=== PATIENT | male | born 1960 | race Caucasian/White ===

== ENCOUNTER 2017-09-22 20:21 | Inpatient (IN) | payer BC ==
[~2017-09-22] VITALS: Ht 180.3 cm; Wt 82.0 kg
[2017-09-22 20:58] LABS: BASOPHILS % (AUTO) 0.1 % (0-1); EOSINOPHILS % (AUTO) 0 % (0-6); HEMATOCRIT 41.1 % (42.0-52.0); HEMOGLOBIN 13.6 g/dl (14.0-17.9); LYMPHOCYTES # (AUTO) 1.5 X10'3 (1.1-4.8); LYMPHOCYTES % (AUTO) 6.7 % (21-51); MEAN CORPUSCULAR HEMOGLOBIN 29.6 PG (27.0-31.0); MEAN CORPUSCULAR VOLUME 89.6 FL (78-98); MEAN PLATELET VOLUME 8.3 FL (7.4-10.4); MONOCYTES # (AUTO) 1.2 X10'3 (0-0.9); MONOCYTES % (AUTO) 5.2 % (2-12); NEUTROPHILS # (AUTO) 20.2 X10'3 (1.8-7.7); PLATELET COUNT 218 X10'3 (140-440); RED BLOOD COUNT 4.59 X10'6 (4.70-6.10); RED CELL DISTRIBUTION WIDTH 15.3 % (11.5-14.5)
[2017-09-22 21:10] LABS: INR 1.1 INR; PARTIAL THROMBOPLASTIN TIME 41 SECONDS (22-32); PROTHROMBIN TIME 11.6 SECONDS (9.0-12.0)
[2017-09-22 21:24] LABS: ALANINE AMINOTRANSFERASE 130 U/L (12-78); ALBUMIN 3.3 G/DL (3.4-5.0); ALBUMIN/GLOBULIN RATIO 0.7 (1.1-1.5); ALKALINE PHOSPHATASE 68 IU/L (46-116); ANION GAP 11 (8-16); ASPARTATE AMINO TRANSFERASE 197 U/L (10-37); BILIRUBIN,TOTAL 0.7 MG/DL (0.1-1.0); BLOOD UREA NITROGEN 34 MG/DL (7-18); BUN/CREATININE RATIO 22.8 (5.4-32.0); CALCIUM 8.8 MG/DL (8.5-10.1); CHLORIDE 95 MMOL/L (99-107); CREATININE 1.49 MG/DL (0.60-1.10); GLUCOSE 83 MG/DL (70-104); POTASSIUM 4.3 MMOL/L (3.5-5.1); SODIUM 132 MMOL/L (135-145); TOTAL CARBON DIOXIDE 25.6 MMOL/L (24-32); TOTAL PROTEIN 7.9 G/DL (6.4-8.2); eGFR 48 ML/MIN
[2017-09-22 21:40] LABS: TOTAL CELLS COUNTED 100
[2017-09-22 21:41] LABS: PLATELET ESTIMATE NORMAL
[2017-09-22] MEDS ORDERED: normal saline 1000ML IV soln IVB ONE (22:20)
[2017-09-22 22:25] LABS: CLARITY,URINE Clear (Clear); COLOR,URINE Yellow (Yellow); GLUCOSE, URINE Negative (Neg); KETONES,URINE Trace mg/dl (Neg); LEUKOCYTE ESTERASE ,URINE Negative (Neg); NITRITES, URINE Negative (Neg); OCCULT BLOOD,URINE Moderate (Neg); PH,URINE 6.5 (4.8-8.0); PROTEIN,URINE 30 mg/dl (Neg); UROBILINOGEN,URINE 0.2 E.U/dL (0.2-1.0)
[2017-09-22] MEDS ORDERED: vancomycin/NS 1 GM ADD-VANTAGE 250 ML IV ONE (22:30)
[2017-09-22] MEDS ORDERED: CefTRIAXone 1 gm/50ml D5W ADV 50 ML IV ONE (22:30)
[2017-09-22] MEDS ORDERED: LIDOcaine 1.5% w/epinephrine 1:200,000 5ml ampul IJ ONE (22:35)
[2017-09-22 22:40] LABS: UA COLLECTION TYPE CLN CATCH MIDSTREAM
[2017-09-22] MEDS ORDERED: cefazolin 1gm/NS 100mL 100 ML IV ONE (22:40)
[2017-09-22 22:42] LABS: BACTERIA,URINE FEW /HPF (Neg); RBC,URINE 0-2 /HPF (0-2); SQUAMOUS EPITHELIAL CELL,UR FEW /LPF (FEW); WBC,URINE 0-4 /HPF (0-4)
[2017-09-22] MEDS ORDERED: lidocaine 1.5% w/epinephrine 1:200,000 10ml vial MPF IJ ONE (22:45)
[2017-09-22] MEDS ORDERED: HYDROcodone/acetaminophen 10/325mg tab PO PRN (23:00)
[2017-09-22] MEDS ORDERED: ondansetron/PF 4mg/2ml inj IV PRN (23:00)
[2017-09-22] MEDS ORDERED: mag hydrox/Alum hydrox/simeth 30ml oral suspension PO PRN (23:00)
[2017-09-22] MEDS ORDERED: magnesium hydroxide 30ml (MOM) UD suspension PO PRN (23:00)
[2017-09-22] MEDS ORDERED: acetaminophen 325mg tablet PO PRN ×2 (23:00)
[2017-09-22] MEDS: normal saline 1000ml 1,000 ML IV SCH (23:40)
[2017-09-22] MEDS ORDERED: CADD PCA waste documentation MC PRN (23:50)
[2017-09-22] MEDS ORDERED: naloxone 0.4 mg/ml inj IV PRN (23:50)
[2017-09-23] VITALS (19 sets, daily range): BP systolic 88–124; BP diastolic 51–76
[2017-09-23] MEDS: HYDROmorphone/NS 1 mg/ml CADD 50 ML IV SCH ×13 (00:23→23:00)
[2017-09-23] MEDS ORDERED: HYDR-565 PO (00:26)
[2017-09-23 00:58] LABS: APPEARANCE,SYNOVIAL FLUID CLOUDY; COLOR,SYNOVIAL FLUID YELLOW
[2017-09-23 00:59] LABS: LYMPHOCYTES,SYNOVIAL FLUID 12 % (0-75); MONOCYTES,SYNOVIAL FLUID 6 % (0-0); NEUTROPHILS,SYNOVIAL FLUID 82 % (0-25); SYN RBC 1800 /CU MM (0); SYN WBC 69000 /CU MM (0-200)
[2017-09-23 06:09] LABS: BASOPHILS % (AUTO) 0 % (0-1); EOSINOPHILS % (AUTO) 0 % (0-6); HEMATOCRIT 36.9 % (42.0-52.0); HEMOGLOBIN 12.1 g/dl (14.0-17.9); LYMPHOCYTES # (AUTO) 1.5 X10'3 (1.1-4.8); MEAN CORPUSCULAR HEMOGLOBIN 29.6 PG (27.0-31.0); MEAN CORPUSCULAR HGB CONC 32.9 % (33.0-36.5); MEAN CORPUSCULAR VOLUME 90.1 FL (78-98); MEAN PLATELET VOLUME 8.4 FL (7.4-10.4); MONOCYTES # (AUTO) 1.1 X10'3 (0-0.9); MONOCYTES % (AUTO) 5.7 % (2-12); NEUTROPHILS # (AUTO) 15.9 X10'3 (1.8-7.7); NEUTROPHILS % (AUTO) 86.3 % (42-75); PLATELET COUNT 201 X10'3 (140-440); RED BLOOD COUNT 4.09 X10'6 (4.70-6.10); WHITE BLOOD COUNT 18.5 X10'3 (4.5-11.0)
[2017-09-23 06:16] LABS: PARTIAL THROMBOPLASTIN TIME 37 SECONDS (22-32); PROTHROMBIN TIME 10.6 SECONDS (9.0-12.0)
[2017-09-23 06:28] LABS: ALANINE AMINOTRANSFERASE 95 U/L (12-78); ALBUMIN 2.6 G/DL (3.4-5.0); ALBUMIN/GLOBULIN RATIO 0.6 (1.1-1.5); ALKALINE PHOSPHATASE 61 IU/L (46-116); ANION GAP 8 (8-16); ASPARTATE AMINO TRANSFERASE 124 U/L (10-37); BILIRUBIN,TOTAL 0.3 MG/DL (0.1-1.0); BLOOD UREA NITROGEN 24 MG/DL (7-18); BUN/CREATININE RATIO 18.9 (5.4-32.0); CALCIUM 8.4 MG/DL (8.5-10.1); CHLORIDE 105 MMOL/L (99-107); CREATININE 1.27 MG/DL (0.60-1.10); GLUCOSE 111 MG/DL (70-104); POTASSIUM 3.9 MMOL/L (3.5-5.1); SODIUM 140 MMOL/L (135-145); TOTAL PROTEIN 6.7 G/DL (6.4-8.2); eGFR 58 ML/MIN
[2017-09-23] MEDS: normal saline 1000ml 1,000 ML IV SCH ×2 (09:00→21:46)
[2017-09-23] MEDS ORDERED: ROPIVAcaine 0.5% (5mg/ml) 30ml vial ONE ×2 (10:10→11:38)
[2017-09-23] MEDS ORDERED: povidone-iodine 10% topical ointment 28.4gm TP ONE (10:10)
[2017-09-23] MEDS ORDERED: ketorolac trometh. 30mg/ml inj. ONE ×2 (10:10→14:08)
[2017-09-23] MEDS ORDERED: vancomycin 1,000mg inj ONE (10:57)
[2017-09-23] MEDS ORDERED: tobramycin sulfate 1.2gm vial IR ONE (11:00)
[2017-09-23] MEDS ORDERED: ringers solution, lacted 1,000 ML IV SCH (11:26)
[2017-09-23] MEDS ORDERED: meperidine/PF 25mg/ml syringe IV PRN ×3 (11:30)
[2017-09-23] MEDS ORDERED: proCHLORperazine 10 MG/2 ml inj IV PRN (11:30)
[2017-09-23] MEDS ORDERED: ondansetron/PF 4mg/2ml inj IV PRN ×2 (11:30→14:10)
[2017-09-23] MEDS ORDERED: midazolam 2 mg/2 ml injection ONE (11:36)
[2017-09-23] MEDS ORDERED: fentaNYL /PF 50mcg/ml 5ml ampule ONE (11:37)
[2017-09-23] MEDS ORDERED: propofol inj 20 ML IV ONE (11:39)
[2017-09-23] MEDS ORDERED: sevoflurane 250ml liquid IH ONE (11:45)
[2017-09-23] MEDS: ceFAZolin 1000mg inj ONE ×2 (12:45→12:46)
[2017-09-23] MEDS ORDERED: ceFAZolin 1000mg inj ONE ×2 (13:29)
[2017-09-23] MEDS ORDERED: bisacodyl 10mg suppository rectal RC PRN (14:10)
[2017-09-23] MEDS ORDERED: diphenhydrAMINE 25mg capsule PO PRN ×2 (14:10)
[2017-09-23] MEDS ORDERED: CADD PCA waste documentation MC PRN (14:10)
[2017-09-23] MEDS ORDERED: acetaminophen 325mg tablet PO PRN (14:10)
[2017-09-23] MEDS ORDERED: magnesium hydroxide 30ml (MOM) UD suspension PO PRN (14:10)
[2017-09-23] MEDS ORDERED: HYDROcodone/acetaminophen 10/325mg tab PO PRN ×2 (14:10)
[2017-09-23] MEDS ORDERED: naloxone 0.4 mg/ml inj IV PRN (14:10)
[2017-09-23] MEDS: cefazolin 1gm/NS 100mL 100 ML IV SCH (16:35)
[2017-09-23] MEDS ORDERED: vancomycin/NS 1 GM ADD-VANTAGE 250 ML IV SCH (20:00)
[2017-09-23] MEDS: sennosides 8.6mg tablet PO SCH (21:45)
[2017-09-24] MEDS: cefazolin 1gm/NS 100mL 100 ML IV SCH (00:38)
[2017-09-24] MEDS: HYDROmorphone/NS 1 mg/ml CADD 50 ML IV SCH ×9 (00:39→17:00)
[2017-09-24 02:00] VITALS: BP_SYST 117; BP_SYST 98; BP_DIAS 58; BP_DIAS 66
[2017-09-24] MEDS: normal saline 1000ml 1,000 ML IV SCH ×2 (05:00→15:00)
[2017-09-24 05:23] LABS: BASOPHILS % (AUTO) 0 % (0-1); EOSINOPHILS # (AUTO) 0.3 X10'3 (0-0.9); EOSINOPHILS % (AUTO) 1.7 % (0-6); HEMATOCRIT 32.3 % (42.0-52.0); HEMOGLOBIN 10.7 g/dl (14.0-17.9); LYMPHOCYTES # (AUTO) 1.2 X10'3 (1.1-4.8); LYMPHOCYTES % (AUTO) 7.4 % (21-51); MEAN CORPUSCULAR HEMOGLOBIN 29.7 PG (27.0-31.0); MEAN CORPUSCULAR VOLUME 90.2 FL (78-98); MEAN PLATELET VOLUME 8.7 FL (7.4-10.4); MONOCYTES % (AUTO) 6.3 % (2-12); NEUTROPHILS # (AUTO) 13.9 X10'3 (1.8-7.7); NEUTROPHILS % (AUTO) 84.6 % (42-75); PLATELET COUNT 190 X10'3 (140-440); RED BLOOD COUNT 3.58 X10'6 (4.70-6.10); RED CELL DISTRIBUTION WIDTH 15.1 % (11.5-14.5); WHITE BLOOD COUNT 16.4 X10'3 (4.5-11.0)
[2017-09-24 05:35] LABS: INR 0.9 INR; PARTIAL THROMBOPLASTIN TIME 33 SECONDS (22-32); PROTHROMBIN TIME 9.3 SECONDS (9.0-12.0)
[2017-09-24 05:56] LABS: ALANINE AMINOTRANSFERASE 94 U/L (12-78); ALBUMIN 2.2 G/DL (3.4-5.0); ALBUMIN/GLOBULIN RATIO 0.5 (1.1-1.5); ALKALINE PHOSPHATASE 86 IU/L (46-116); ANION GAP 6 (8-16); ASPARTATE AMINO TRANSFERASE 96 U/L (10-37); BILIRUBIN,TOTAL 0.3 MG/DL (0.1-1.0); BLOOD UREA NITROGEN 17 MG/DL (7-18); BUN/CREATININE RATIO 17.9 (5.4-32.0); CALCIUM 8.8 MG/DL (8.5-10.1); CHLORIDE 107 MMOL/L (99-107); CREATININE 0.95 MG/DL (0.60-1.10); GLUCOSE 138 MG/DL (70-104); POTASSIUM 4.3 MMOL/L (3.5-5.1); SODIUM 141 MMOL/L (135-145); TOTAL CARBON DIOXIDE 27.9 MMOL/L (24-32); TOTAL PROTEIN 6.5 G/DL (6.4-8.2); eGFR 81 ML/MIN
[2017-09-24 06:00] VITALS: BP 107/68
[2017-09-24] MEDS ORDERED: vancomycin/NS 1 GM ADD-VANTAGE 250 ML IV SCH (08:00)
[2017-09-24] MEDS: vancomycin inj 1,250 MG in normal saline 250ml IV soln 250 ML IV SCH ×2 (08:23→19:59)
[2017-09-24] MEDS: enoxaparin 40mg/0.4ml syringe SQ SCH (08:23)
[2017-09-24 11:00] VITALS: BP 110/75
[2017-09-24 18:00] VITALS: BP 117/56
[2017-09-24] MEDS ORDERED: oxyCODONE IR 5mg (immed. release) tablet PO PRN (18:45)
[2017-09-24] MEDS ORDERED: HYDROmorphone 1 mg/ml syringe IV PRN (18:45)
[2017-09-24] MEDS: acetaminophen 325mg tablet PO SCH (19:59)
[2017-09-24] MEDS: sennosides 8.6mg tablet PO SCH (19:59)
[2017-09-24] MEDS: oxyCODONE IR 5mg (immed. release) tablet PO PRN (20:00)
[2017-09-24 22:00] VITALS: BP 120/68
[2017-09-25] MEDS: oxyCODONE IR 5mg (immed. release) tablet PO PRN ×6 (00:35→21:54)
[2017-09-25] MEDS: acetaminophen 325mg tablet PO SCH ×4 (00:36→19:49)
[2017-09-25] MEDS: normal saline 1000ml 1,000 ML IV SCH ×2 (01:00→07:58)
[2017-09-25 06:00] VITALS: BP 109/72
[2017-09-25 06:46] LABS: BASOPHILS # (AUTO) 0.1 X10'3 (0-0.2); BASOPHILS % (AUTO) 0.8 % (0-1); EOSINOPHILS # (AUTO) 0.1 X10'3 (0-0.9); EOSINOPHILS % (AUTO) 1.3 % (0-6); HEMOGLOBIN 11.4 g/dl (14.0-17.9); LYMPHOCYTES # (AUTO) 2.2 X10'3 (1.1-4.8); LYMPHOCYTES % (AUTO) 21.9 % (21-51); MEAN CORPUSCULAR HGB CONC 33.4 % (33.0-36.5); MEAN CORPUSCULAR VOLUME 89.8 FL (78-98); MEAN PLATELET VOLUME 8.8 FL (7.4-10.4); MONOCYTES % (AUTO) 9.9 % (2-12); NEUTROPHILS # (AUTO) 6.8 X10'3 (1.8-7.7); NEUTROPHILS % (AUTO) 66.1 % (42-75); PLATELET COUNT 220 X10'3 (140-440); RED BLOOD COUNT 3.79 X10'6 (4.70-6.10); RED CELL DISTRIBUTION WIDTH 14.7 % (11.5-14.5); WHITE BLOOD COUNT 10.3 X10'3 (4.5-11.0)
[2017-09-25 07:01] LABS: INR 0.9 INR; PARTIAL THROMBOPLASTIN TIME 32 SECONDS (22-32); PROTHROMBIN TIME 9.1 SECONDS (9.0-12.0)
[2017-09-25 07:18] LABS: ALANINE AMINOTRANSFERASE 159 U/L (12-78); ALBUMIN 2.4 G/DL (3.4-5.0); ALBUMIN/GLOBULIN RATIO 0.5 (1.1-1.5); ALKALINE PHOSPHATASE 120 IU/L (46-116); ANION GAP 6 (8-16); ASPARTATE AMINO TRANSFERASE 110 U/L (10-37); BILIRUBIN,TOTAL 0.5 MG/DL (0.1-1.0); BLOOD UREA NITROGEN 14 MG/DL (7-18); BUN/CREATININE RATIO 16.3 (5.4-32.0); CALCIUM 9.6 MG/DL (8.5-10.1); CHLORIDE 103 MMOL/L (99-107); CREATININE 0.86 MG/DL (0.60-1.10); GLUCOSE 91 MG/DL (70-104); POTASSIUM 3.9 MMOL/L (3.5-5.1); SODIUM 139 MMOL/L (135-145); TOTAL CARBON DIOXIDE 30.2 MMOL/L (24-32); TOTAL PROTEIN 6.9 G/DL (6.4-8.2); eGFR > 90 ML/MIN
[2017-09-25] MEDS: vancomycin inj 1,250 MG in normal saline 250ml IV soln 250 ML IV SCH (07:58)
[2017-09-25] MEDS: enoxaparin 40mg/0.4ml syringe SQ SCH (07:58)
[2017-09-25 10:00] VITALS: BP 128/45
[2017-09-25] MEDS: penicillin G potassium inj 3,000,000 UNIT in normal saline 100ml IV soln 100 ML IV SCH ×4 (14:06→23:50)
[2017-09-25 18:00] VITALS: BP 124/69
[2017-09-25] MEDS ORDERED: VANCOMYCIN LEVEL IV ONE (19:30)
[2017-09-25] MEDS: sennosides 8.6mg tablet PO SCH (19:49)
[2017-09-25 22:00] VITALS: BP 123/71
[2017-09-26] MEDS: acetaminophen 325mg tablet PO SCH ×3 (02:00→13:54)
[2017-09-26] MEDS: penicillin G potassium inj 3,000,000 UNIT in normal saline 100ml IV soln 100 ML IV SCH ×3 (03:43→12:33)
[2017-09-26 04:26] LABS: BASOPHILS # (AUTO) 0.1 X10'3 (0-0.2); BASOPHILS % (AUTO) 0.5 % (0-1); EOSINOPHILS # (AUTO) 0.1 X10'3 (0-0.9); EOSINOPHILS % (AUTO) 1.3 % (0-6); HEMATOCRIT 37.1 % (42.0-52.0); HEMOGLOBIN 12.2 g/dl (14.0-17.9); LYMPHOCYTES # (AUTO) 2.4 X10'3 (1.1-4.8); LYMPHOCYTES % (AUTO) 21.7 % (21-51); MEAN CORPUSCULAR HEMOGLOBIN 29.4 PG (27.0-31.0); MEAN CORPUSCULAR HGB CONC 32.9 % (33.0-36.5); MEAN CORPUSCULAR VOLUME 89.2 FL (78-98); MONOCYTES # (AUTO) 1.3 X10'3 (0-0.9); MONOCYTES % (AUTO) 12.2 % (2-12); NEUTROPHILS % (AUTO) 64.3 % (42-75); PLATELET COUNT 275 X10'3 (140-440); RED BLOOD COUNT 4.15 X10'6 (4.70-6.10); RED CELL DISTRIBUTION WIDTH 14.4 % (11.5-14.5); WHITE BLOOD COUNT 10.9 X10'3 (4.5-11.0)
[2017-09-26 04:35] LABS: INR 0.9 INR; PROTHROMBIN TIME 9.5 SECONDS (9.0-12.0)
[2017-09-26 04:43] LABS: ALANINE AMINOTRANSFERASE 143 U/L (12-78); ALBUMIN 2.5 G/DL (3.4-5.0); ALBUMIN/GLOBULIN RATIO 0.5 (1.1-1.5); ALKALINE PHOSPHATASE 136 IU/L (46-116); ANION GAP 6 (8-16); ASPARTATE AMINO TRANSFERASE 60 U/L (10-37); BILIRUBIN,TOTAL 0.5 MG/DL (0.1-1.0); BLOOD UREA NITROGEN 12 MG/DL (7-18); BUN/CREATININE RATIO 14.5 (5.4-32.0); CALCIUM 9.6 MG/DL (8.5-10.1); CHLORIDE 98 MMOL/L (99-107); CREATININE 0.83 MG/DL (0.60-1.10); GLUCOSE 104 MG/DL (70-104); SODIUM 136 MMOL/L (135-145); TOTAL CARBON DIOXIDE 31.6 MMOL/L (24-32); TOTAL PROTEIN 7.4 G/DL (6.4-8.2); eGFR > 90 ML/MIN
[2017-09-26] MEDS: oxyCODONE IR 5mg (immed. release) tablet PO PRN ×3 (04:52→14:28)
[2017-09-26 05:00] VITALS: BP 122/66
[2017-09-26] MEDS: enoxaparin 40mg/0.4ml syringe SQ SCH (07:18)
[2017-09-26 10:00] VITALS: BP 120/63
[2017-09-26] MEDS ORDERED: ENOX40DI11 SQ (10:02)
[2017-09-27] MEDS ORDERED: LACTOBACILLUS RHAMNOSUS GG 15 billion unit sprinkle caps PO SCH (07:30)
== END 2017-09-26 14:30 | disposition home health service (06) | DRG 464 ==
LOC: ER 20:23 → ED HOLD 23:00 → ORTHO 4S 09-23 05:28
PROC: 0S9C3ZX Drainage of Right Knee Joint, Percutaneous Approach, Diagnostic (ICD-10-PCS; principal; 2017-09-22)
PROC: 0SPV0JZ Removal of Synthetic Substitute from Right Knee Joint, Tibial Surface, Open Approach (ICD-10-PCS; 2017-09-23)
PROC: 0SBC0ZZ Excision of Right Knee Joint, Open Approach (ICD-10-PCS; 2017-09-23)
PROC: 3E0T3BZ Introduction of Anesthetic Agent into Peripheral Nerves and Plexi, Percutaneous Approach (ICD-10-PCS; 2017-09-23)
PROC: 3E0U029 Introduction of Other Anti-infective into Joints, Open Approach (ICD-10-PCS; 2017-09-23)
PROC: 02HV33Z Insertion of Infusion Device into Superior Vena Cava, Percutaneous Approach (ICD-10-PCS; 2017-09-25)
PROC: B548ZZA Ultrasonography of Superior Vena Cava, Guidance (ICD-10-PCS; 2017-09-25)
DX: T84.53XA Infection and inflammatory reaction due to internal right knee prosthesis, initial encounter (principal); M00.261 Other streptococcal arthritis, right knee; D62 Acute posthemorrhagic anemia; R74.8 Abnormal levels of other serum enzymes; Y83.1 Surgical operation with implant of artificial internal device as the cause of abnormal reaction of the patient, or of later complication, without mention of misadventure at the time of the procedure; B95.4 Other streptococcus as the cause of diseases classified elsewhere; Z88.6 Allergy status to analgesic agent; Z79.899 Other long term (current) drug therapy; Z87.891 Personal history of nicotine dependence; Y92.89 Other specified places as the place of occurrence of the external cause
CPT/HCPCS: 20610; 36569; 99285; Z7506; 36415; 73560; 76937; 80053; 81001; 83605; 84145; 85025; 85610; 85651; 85730; 86140; 86885; 86900; 86901; 87040; 87070; 87075; 87077; 87186; 89051; 93005; 97110; 97116; 97162; 97530; A6255; A6449; A7000; C1713; C1776; J0690; J0696; J1170; J1650; J1885; J2250; J2540; J2704; J2795; J3010; J3260; J3370; J3490; J7030; J7120; Q0163

== ENCOUNTER 2019-01-05 17:24 | Inpatient (IN) | payer BC ==
[~2019-01-05] VITALS: Ht 180.3 cm; Wt 101.0 kg
[~2019-01-05 17:24] MED LIST: ENOX40DI11 SQ; HYDR-4353 PO
[2019-01-05 18:08] LABS: HEMATOCRIT 39.9 % (42.0-52.0); HEMOGLOBIN 13.3 g/dl (14.0-17.9); MEAN CORPUSCULAR HEMOGLOBIN 30.1 PG (27.0-31.0); MEAN CORPUSCULAR HGB CONC 33.3 g/dL (33.0-36.5); MEAN CORPUSCULAR VOLUME 90.3 FL (78-98); RED BLOOD COUNT 4.42 X10'6 (4.70-6.10); RED CELL DISTRIBUTION WIDTH 14.1 % (11.5-14.5); WHITE BLOOD COUNT 9.9 X10'3 (4.5-11.0)
[2019-01-05 18:09] LABS: BASOPHILS # (AUTO) 0.1 X10'3 (0-0.2); BASOPHILS % (AUTO) 0.7 % (0-1); EOSINOPHILS # (AUTO) 0.2 X10'3 (0-0.9); EOSINOPHILS % (AUTO) 1.7 % (0-6); LYMPHOCYTES # (AUTO) 2.4 X10'3 (1.1-4.8); LYMPHOCYTES % (AUTO) 24.2 % (21-51); MEAN PLATELET VOLUME 8.7 FL (7.4-10.4); MONOCYTES # (AUTO) 0.9 X10'3 (0-0.9); MONOCYTES % (AUTO) 9.3 % (2-12); NEUTROPHILS # (AUTO) 6.4 X10'3 (1.8-7.7); NEUTROPHILS % (AUTO) 64.1 % (42-75); PLATELET COUNT 294 X10'3 (140-440)
[2019-01-05 18:18] LABS: ALANINE AMINOTRANSFERASE 58 U/L (12-78); ALBUMIN 3.8 G/DL (3.4-5.0); ALKALINE PHOSPHATASE 65 IU/L (46-116); ANION GAP 5 (8-16); ASPARTATE AMINO TRANSFERASE 27 U/L (10-37); BILIRUBIN,TOTAL 0.2 MG/DL (0.1-1.0); BLOOD UREA NITROGEN 18 MG/DL (7-18); BUN/CREATININE RATIO 19.4 (5.4-32.0); CALCIUM 9.7 MG/DL (8.5-10.1); CHLORIDE 105 MMOL/L (99-107); CREATININE 0.93 MG/DL (0.60-1.10); GLUCOSE 135 MG/DL (70-104); LIPASE 127 U/L (73-393); SODIUM 140 MMOL/L (135-145); TOTAL CARBON DIOXIDE 30.2 MMOL/L (24-32); TOTAL PROTEIN 7.6 G/DL (6.4-8.2); eGFR 83 ML/MIN
--- NOTE | 2019-01-05 19:55 | NUR ---
ULTRASOUND AT BEDSIDE
[2019-01-05] MEDS ORDERED: ketorolac trometh. 30mg/ml inj. IV ONE (20:15)
[2019-01-05] MEDS ORDERED: ondansetron/PF 4mg/2ml inj IV PRN (21:45)
[2019-01-05] MEDS ORDERED: acetaminophen 325mg tablet PO PRN (21:45)
[2019-01-05] MEDS ORDERED: magnesium hydroxide 30ml (MOM) UD suspension PO PRN (21:45)
[2019-01-05] MEDS ORDERED: mag hydrox/Alum hydrox/simeth 30ml oral suspension PO PRN (21:45)
[2019-01-05] MEDS ORDERED: ZOLP10TA PO (22:10)
[2019-01-05] MEDS: normal saline 1000ml 1,000 ML IV SCH (22:13)
[2019-01-05 22:22] LABS: CLARITY,URINE SLIGHTLY CLOUDY (Clear); COLOR,URINE YELLOW (Yellow); GLUCOSE, URINE 100 mg/dl (Neg); KETONES,URINE NEGATIVE (Neg); LEUKOCYTE ESTERASE ,URINE NEGATIVE (Neg); NITRITES, URINE NEGATIVE (Neg); OCCULT BLOOD,URINE NEGATIVE (Neg); PROTEIN,URINE NEGATIVE (Neg); UROBILINOGEN,URINE 0.2 E.U/dL (0.2-1.0)
[2019-01-05 22:29] LABS: UA COLLECTION TYPE CLN CATCH MIDSTREAM
[2019-01-05 22:30] LABS: BACTERIA,URINE FEW /HPF (Neg); RBC,URINE 0-2 /HPF (0-2); SQUAMOUS EPITHELIAL CELL,UR FEW /LPF (FEW); WBC,URINE 0-4 /HPF (0-4)
[2019-01-05 23:20] VITALS: BP 155/92
[2019-01-06] VITALS (17 sets, daily range): BP systolic 109–155; BP diastolic 64–84
[2019-01-06] MEDS: morphine 2 MG/ML inj. syringe IV PRN ×3 (02:37→11:11)
[2019-01-06] MEDS ORDERED: ROSU10TA2 PO (05:43)
[2019-01-06 06:23] LABS: BASOPHILS # (AUTO) 0.1 X10'3 (0-0.2); BASOPHILS % (AUTO) 0.6 % (0-1); EOSINOPHILS # (AUTO) 0.1 X10'3 (0-0.9); EOSINOPHILS % (AUTO) 0.5 % (0-6); HEMATOCRIT 40.2 % (42.0-52.0); LYMPHOCYTES # (AUTO) 2.3 X10'3 (1.1-4.8); LYMPHOCYTES % (AUTO) 17.6 % (21-51); MEAN CORPUSCULAR HEMOGLOBIN 29.4 PG (27.0-31.0); MEAN CORPUSCULAR HGB CONC 32.4 g/dL (33.0-36.5); MEAN CORPUSCULAR VOLUME 90.8 FL (78-98); MEAN PLATELET VOLUME 8.9 FL (7.4-10.4); MONOCYTES % (AUTO) 7.6 % (2-12); NEUTROPHILS # (AUTO) 9.5 X10'3 (1.8-7.7); NEUTROPHILS % (AUTO) 73.7 % (42-75); PLATELET COUNT 266 X10'3 (140-440); RED BLOOD COUNT 4.43 X10'6 (4.70-6.10); RED CELL DISTRIBUTION WIDTH 14.2 % (11.5-14.5); WHITE BLOOD COUNT 12.9 X10'3 (4.5-11.0)
[2019-01-06 06:37] LABS: ALANINE AMINOTRANSFERASE 50 U/L (12-78); ALBUMIN 3.3 G/DL (3.4-5.0); ALBUMIN/GLOBULIN RATIO 0.9 (1.1-1.5); ALKALINE PHOSPHATASE 63 IU/L (46-116); ANION GAP 7 (8-16); ASPARTATE AMINO TRANSFERASE 22 U/L (10-37); BILIRUBIN,TOTAL 0.3 MG/DL (0.1-1.0); BLOOD UREA NITROGEN 14 MG/DL (7-18); BUN/CREATININE RATIO 17.7 (5.4-32.0); CALCIUM 9.1 MG/DL (8.5-10.1); CHLORIDE 106 MMOL/L (99-107); CREATININE 0.79 MG/DL (0.60-1.10); GLUCOSE 112 MG/DL (70-104); POTASSIUM 4.1 MMOL/L (3.5-5.1); SODIUM 140 MMOL/L (135-145); TOTAL CARBON DIOXIDE 27.5 MMOL/L (24-32); eGFR > 90 ML/MIN
[2019-01-06] MEDS: normal saline 1000ml 1,000 ML IV SCH ×2 (07:18→17:16)
[2019-01-06] MEDS ORDERED: ceFAZolin 1GM/D5W- ADD-VANTAGE 50 ML IV ONE (13:10)
[2019-01-06] MEDS ORDERED: ringers solution, lacted 1,000 ML IV SCH (15:28)
[2019-01-06] MEDS ORDERED: labetalol 20mg/4ml (5mg/ml) syringe IV PRN (15:30)
[2019-01-06] MEDS ORDERED: meperidine/PF 25mg/ml syringe IV PRN ×2 (15:30)
[2019-01-06] MEDS ORDERED: ondansetron/PF 4mg/2ml inj IV PRN (15:30)
[2019-01-06] MEDS ORDERED: morphine 4 MG/ML inj SYRINge IV PRN ×2 (15:30)
[2019-01-06] MEDS ORDERED: hydrALAZINE 20mg/ml inj. IV PRN (15:30)
[2019-01-06] MEDS ORDERED: BUPIVAcaine/PF 2.5mg/ml (0.25%) 10ml vial ONE ×2 (15:50→19:35)
[2019-01-06] MEDS ORDERED: ceFAZolin 1000mg inj ONE ×3 (15:50→18:01)
[2019-01-06] MEDS ORDERED: midazolam 2 mg/2 ml injection ONE (17:59)
[2019-01-06] MEDS ORDERED: fentaNYL/PF 50MCG/1 ML 2ML syringe ONE ×2 (17:59→18:53)
[2019-01-06] MEDS ORDERED: ondansetron/PF 4mg/2ml inj ONE (18:00)
[2019-01-06] MEDS ORDERED: dexamethasone sod phosphate 10mg/ml inj ONE (18:00)
[2019-01-06] MEDS ORDERED: neostigmine methylsulfate 1 MG/ML 10ml vial ONE (18:00)
[2019-01-06] MEDS ORDERED: sevoflurane 250ml liquid IH ONE (18:00)
[2019-01-06] MEDS ORDERED: rocuronium 10mg/ml inj IV ONE ×2 (18:00→18:06)
--- NOTE | 2019-01-06 18:00 | NUR ---
Patient in room [facility]TH[facility] 4015. I have received report from LIN Avila and had the opportunity to ask questions and assume patient care.
[2019-01-06] MEDS ORDERED: propofol inj 20 ML IV ONE (18:05)
[2019-01-06] MEDS ORDERED: LIDOcaine 2% (20mg/ml) 5ml vial ONE (18:05)
[2019-01-06] MEDS ORDERED: glycopyrrolate 0.2mg/ml inj ONE (18:08)
[2019-01-06] MEDS ORDERED: ePHEDrine 50MG/ML INJ. ONE (18:34)
[2019-01-06] MEDS ORDERED: BUPIVACAINE liposomal/PF 13.3 MG/ML vial IM ONE (19:36)
[2019-01-06] MEDS: potassium CL 20mEq in D5-1/2NS 1,000 ML IV SCH (19:51)
[2019-01-06] MEDS ORDERED: HYDROmorphone 1 mg/ml syringe IV PRN (19:55)
--- NOTE | 2019-01-06 20:00 | NUR ---
Received from OR via BED, accompanied by Anesthesiologist DR VILA and report given by Anesthesiologist. PT DROWSY, NO S/S OF DISTRESS/DISCOMFORT, VSS. MIDLINE INCISION W/ISLAND DRSG COVERING W/SCANT AMT OF S/S DRAINAGE, KLARISSA TO BULB SUCTION W/S/S DRAINAGE IN BULB. Addendum: 01/06/19 at 2033 by Corrine Sutton RN Amended: Links added.
--- NOTE | 2019-01-06 21:20 | NUR ---
Report called to receiving nurse. Transferred via BED, NO Belongings, RECEIVING RN AT BEDSIDE TO RECEIVE PT, BLL, CALL LIGHT GIVEN, SIDE RAILS UP X 2, PTS FAMILY PRESENT. PT COMFORTABLE. Special Issues communicated to receiving nurse. YES. Addendum: 01/06/19 at 2136 by Corrine Sutton RN Amended: Links added.
--- NOTE | 2019-01-06 21:25 | NUR ---
Patient arrived from recovery. Alert & oriented, drowsy, settled into his bed, call light given, and Post-op vs initiated. Patient denies having any pain at this time. Hypoactive BS, long vertical island with minimal drainage noted and dressing over KLARISSA site to the RUQ with around 10cc sanguineous drainage output noted.
--- NOTE | 2019-01-06 21:29 | NUR ---
Pt. went to surgical floor after his surgery.
[2019-01-07] VITALS (7 sets, daily range): BP systolic 116–145; BP diastolic 71–90
[2019-01-07] MEDS: cefotetan 1gm/50ml IVPB 50 ML IV SCH ×2 (00:30→07:54)
[2019-01-07] MEDS: potassium CL 20mEq in D5-1/2NS 1,000 ML IV SCH ×2 (01:22→11:31)
[2019-01-07] MEDS: morphine 2 MG/ML inj. syringe IV PRN ×2 (01:29→05:37)
[2019-01-07] MEDS: normal saline 1000ml 1,000 ML IV SCH ×3 (03:43→17:20)
[2019-01-07 05:20] LABS: BASOPHILS % (AUTO) 0.2 % (0-1); EOSINOPHILS % (AUTO) 0 % (0-6); HEMATOCRIT 40.1 % (42.0-52.0); HEMOGLOBIN 13.1 g/dl (14.0-17.9); LYMPHOCYTES # (AUTO) 0.9 X10'3 (1.1-4.8); LYMPHOCYTES % (AUTO) 8.3 % (21-51); MEAN CORPUSCULAR HEMOGLOBIN 29.9 PG (27.0-31.0); MEAN CORPUSCULAR HGB CONC 32.8 g/dL (33.0-36.5); MEAN CORPUSCULAR VOLUME 91.2 FL (78-98); MEAN PLATELET VOLUME 9.2 FL (7.4-10.4); MONOCYTES # (AUTO) 0.4 X10'3 (0-0.9); MONOCYTES % (AUTO) 3.3 % (2-12); NEUTROPHILS # (AUTO) 9.9 X10'3 (1.8-7.7); NEUTROPHILS % (AUTO) 88.2 % (42-75); PLATELET COUNT 261 X10'3 (140-440); RED CELL DISTRIBUTION WIDTH 14.6 % (11.5-14.5); WHITE BLOOD COUNT 11.2 X10'3 (4.5-11.0)
[2019-01-07 05:36] LABS: ALANINE AMINOTRANSFERASE 68 U/L (12-78); ALBUMIN 3.1 G/DL (3.4-5.0); ALBUMIN/GLOBULIN RATIO 0.8 (1.1-1.5); ALKALINE PHOSPHATASE 61 IU/L (46-116); ANION GAP 6 (8-16); ASPARTATE AMINO TRANSFERASE 38 U/L (10-37); BILIRUBIN,TOTAL 0.3 MG/DL (0.1-1.0); BLOOD UREA NITROGEN 10 MG/DL (7-18); BUN/CREATININE RATIO 10.1 (5.4-32.0); CALCIUM 8.5 MG/DL (8.5-10.1); CHLORIDE 104 MMOL/L (99-107); CREATININE 0.99 MG/DL (0.60-1.10); GLUCOSE 171 MG/DL (70-104); POTASSIUM 4.4 MMOL/L (3.5-5.1); SODIUM 139 MMOL/L (135-145); TOTAL CARBON DIOXIDE 29.1 MMOL/L (24-32); TOTAL PROTEIN 6.9 G/DL (6.4-8.2); eGFR 77 ML/MIN
--- NOTE | 2019-01-07 06:40 | NUR ---
Problems reprioritized. Patient report given, questions answered & plan of care reviewed with Arelis CEBALLOS .
--- NOTE | 2019-01-07 15:11 | NUR ---
Student documentation: I have reviewed interventions, assessments performed and documented by Annie Dan and Sally Ricketts.
--- NOTE | 2019-01-07 18:30 | NUR ---
Patient in room [facility] 347. I have received report from LIN Infante and had the opportunity to ask questions and assume patient care.
--- NOTE | 2019-01-07 20:00 | NUR ---
pt tolerated a sandwich Addendum: 01/08/19 at 0309 by Michelle Darby RN Amended: Links added.
[2019-01-08] VITALS: BP 160/72
[2019-01-08] MEDS: HYDROcodone/acetaminophen 10/325mg tab PO PRN ×2 (01:11→21:05)
[2019-01-08 04:48] LABS: BASOPHILS # (AUTO) 0.1 X10'3 (0-0.2); BASOPHILS % (AUTO) 0.7 % (0-1); EOSINOPHILS # (AUTO) 0.1 X10'3 (0-0.9); EOSINOPHILS % (AUTO) 0.4 % (0-6); HEMOGLOBIN 13.9 g/dl (14.0-17.9); LYMPHOCYTES # (AUTO) 3.2 X10'3 (1.1-4.8); LYMPHOCYTES % (AUTO) 22.2 % (21-51); MEAN CORPUSCULAR HEMOGLOBIN 29.4 PG (27.0-31.0); MEAN CORPUSCULAR HGB CONC 32.2 g/dL (33.0-36.5); MEAN CORPUSCULAR VOLUME 91.2 FL (78-98); MEAN PLATELET VOLUME 8.8 FL (7.4-10.4); MONOCYTES # (AUTO) 1.4 X10'3 (0-0.9); MONOCYTES % (AUTO) 9.4 % (2-12); NEUTROPHILS # (AUTO) 9.8 X10'3 (1.8-7.7); NEUTROPHILS % (AUTO) 67.3 % (42-75); PLATELET COUNT 281 X10'3 (140-440); RED BLOOD COUNT 4.72 X10'6 (4.70-6.10); RED CELL DISTRIBUTION WIDTH 14.5 % (11.5-14.5); WHITE BLOOD COUNT 14.5 X10'3 (4.5-11.0)
[2019-01-08 05:28] LABS: ALANINE AMINOTRANSFERASE 64 U/L (12-78); ALBUMIN 3.2 G/DL (3.4-5.0); ALBUMIN/GLOBULIN RATIO 0.8 (1.1-1.5); ALKALINE PHOSPHATASE 65 IU/L (46-116); ANION GAP 8 (8-16); ASPARTATE AMINO TRANSFERASE 31 U/L (10-37); BILIRUBIN,TOTAL 0.4 MG/DL (0.1-1.0); BLOOD UREA NITROGEN 13 MG/DL (7-18); BUN/CREATININE RATIO 15.7 (5.4-32.0); CALCIUM 9.2 MG/DL (8.5-10.1); CHLORIDE 106 MMOL/L (99-107); CREATININE 0.83 MG/DL (0.60-1.10); GLUCOSE 112 MG/DL (70-104); POTASSIUM 3.9 MMOL/L (3.5-5.1); SODIUM 142 MMOL/L (135-145); TOTAL CARBON DIOXIDE 28.2 MMOL/L (24-32); TOTAL PROTEIN 7.1 G/DL (6.4-8.2); eGFR > 90 ML/MIN
--- NOTE | 2019-01-08 06:10 | NUR ---
Patient in room [facility] 347. I have received report from LIN Cedillo and had the opportunity to ask questions and assume patient care.
[2019-01-08 07:15] VITALS: BP 113/85
[2019-01-08 10:54] VITALS: BP 140/81
[2019-01-08] MEDS ORDERED: piperacillin/tazo 3.375gm/50ml 50 ML IV SCH (16:00)
--- NOTE | 2019-01-08 18:15 | NUR ---
Problems reprioritized. Patient report given, questions answered & plan of care reviewed with LIN Mcnally.
[2019-01-08 19:00] VITALS: BP 135/73
[2019-01-09] VITALS: BP 116/59
[2019-01-09 05:18] LABS: BASOPHILS # (AUTO) 0.1 X10'3 (0-0.2); BASOPHILS % (AUTO) 0.6 % (0-1); EOSINOPHILS # (AUTO) 0.2 X10'3 (0-0.9); EOSINOPHILS % (AUTO) 1.8 % (0-6); HEMATOCRIT 43.3 % (42.0-52.0); HEMOGLOBIN 14.4 g/dl (14.0-17.9); LYMPHOCYTES % (AUTO) 29.5 % (21-51); MEAN CORPUSCULAR HEMOGLOBIN 30.4 PG (27.0-31.0); MEAN CORPUSCULAR HGB CONC 33.2 g/dL (33.0-36.5); MEAN CORPUSCULAR VOLUME 91.4 FL (78-98); MEAN PLATELET VOLUME 9.2 FL (7.4-10.4); MONOCYTES # (AUTO) 1.1 X10'3 (0-0.9); NEUTROPHILS # (AUTO) 5.8 X10'3 (1.8-7.7); NEUTROPHILS % (AUTO) 57.1 % (42-75); PLATELET COUNT 271 X10'3 (140-440); RED BLOOD COUNT 4.74 X10'6 (4.70-6.10); RED CELL DISTRIBUTION WIDTH 14.4 % (11.5-14.5); WHITE BLOOD COUNT 10.2 X10'3 (4.5-11.0)
[2019-01-09 05:37] LABS: ALANINE AMINOTRANSFERASE 83 U/L (12-78); ALBUMIN 3.2 G/DL (3.4-5.0); ALBUMIN/GLOBULIN RATIO 0.8 (1.1-1.5); ALKALINE PHOSPHATASE 74 IU/L (46-116); ANION GAP 8 (8-16); ASPARTATE AMINO TRANSFERASE 36 U/L (10-37); BILIRUBIN,TOTAL 0.4 MG/DL (0.1-1.0); BLOOD UREA NITROGEN 16 MG/DL (7-18); BUN/CREATININE RATIO 17.4 (5.4-32.0); CALCIUM 9.5 MG/DL (8.5-10.1); CHLORIDE 103 MMOL/L (99-107); CREATININE 0.92 MG/DL (0.60-1.10); GLUCOSE 109 MG/DL (70-104); POTASSIUM 4.1 MMOL/L (3.5-5.1); SODIUM 141 MMOL/L (135-145); TOTAL CARBON DIOXIDE 30.1 MMOL/L (24-32); TOTAL PROTEIN 7.3 G/DL (6.4-8.2); eGFR 84 ML/MIN
--- NOTE | 2019-01-09 06:10 | NUR ---
I have received report from Dali CEBALLOS and had the opportunity to ask questions and assume patient care.
--- NOTE | 2019-01-09 06:30 | NUR ---
Problems reprioritized. Patient report given, questions answered & plan of care reviewed with Renea CEBALLOS. Addendum: 01/09/19 at 630 by Dali Christie RN Amended: Links added. Addendum: 01/09/19 at 630 by Dali Christie RN Amended: Links added.
--- NOTE | 2019-01-09 06:31 | NUR ---
Problems reprioritized. Patient report given, questions answered & plan of care reviewed with Renea CEBALLOS. Addendum: 01/09/19 at 0631 by Dali Christie RN Amended: Links added.
[2019-01-09 08:00] VITALS: BP 133/81
--- NOTE | 2019-01-09 08:04 | NUR ---
Saúl in to see patient
--- NOTE | 2019-01-09 09:54 | NUR ---
Patient discharged on Nursing end, patient waiting on ride home.
== END 2019-01-09 10:52 | disposition home or self-care (01) | DRG 416 ==
LOC: ER 17:25 → ORTHO 4S 21:45 → CMPBEDREQ 01-06 00:32 → SUR 3N 01-06 23:10
PROVIDERS: ADMIT Internal Medicine; ATTEND Internal Medicine
PROC: 0FJ44ZZ Inspection of Gallbladder, Percutaneous Endoscopic Approach (ICD-10-PCS; 2019-01-06)
PROC: 3E0T3BZ Introduction of Anesthetic Agent into Peripheral Nerves and Plexi, Percutaneous Approach (ICD-10-PCS; 2019-01-06)
PROC: 0FT40ZZ Resection of Gallbladder, Open Approach (ICD-10-PCS; principal; 2019-01-06 18:00)
DX: K80.71 Calculus of gallbladder and bile duct without cholecystitis with obstruction (principal); F17.200 Nicotine dependence, unspecified, uncomplicated; Z96.651 Presence of right artificial knee joint; Z88.6 Allergy status to analgesic agent; Z53.31 Laparoscopic surgical procedure converted to open procedure
CPT/HCPCS: 96361; 96374; 99285; Z7506; 36415; 76700; 80053; 81001; 83605; 83690; 84145; 85025; 85610; 86885; 86900; 86901; 87040; 87070; A6251; A6255; A6257; A7000; G0378; J0690; J1100; J1170; J1885; J2001; J2175; J2250; J2270; J2405; J2543; J2704; J2710; J3010; J3490; J7030; J7120

== ENCOUNTER 2023-01-20 14:50 | Inpatient (IN) | payer BC, OTHER ==
[~2023-01-20] VITALS: Ht 180.3 cm; Wt 98.2 kg
[~2023-01-20 14:50] MED LIST changes: -ENOX40DI11 SQ; +ROSU10TA2 PO; +ZOLP10TA PO
[2023-01-20 16:50] LABS: HEMOGLOBIN 15.6 g/dl (14.0-17.9); MEAN PLATELET VOLUME 8.8 FL (7.4-10.4); WHITE BLOOD COUNT 12.1 X10'3 (4.5-11.0)
[2023-01-20 16:52] LABS: BASOPHILS % (AUTO) 0.2 % (0-1); EOSINOPHILS # (AUTO) 0.1 X10'3 (0-0.9); HEMATOCRIT 47.3 % (42.0-52.0); LYMPHOCYTES # (AUTO) 1.3 X10'3 (1.1-4.8); LYMPHOCYTES % (AUTO) 10.6 % (21-51); MEAN CORPUSCULAR HEMOGLOBIN 30.3 PG (27.0-31.0); MONOCYTES # (AUTO) 1.4 X10'3 (0-0.9); MONOCYTES % (AUTO) 11.3 % (2-12); NEUTROPHILS # (AUTO) 9.3 X10'3 (1.8-7.7); NEUTROPHILS % (AUTO) 76.9 % (42-75); PLATELET COUNT 320 X10'3 (140-440); RED BLOOD COUNT 5.15 X10'6 (4.70-6.10); RED CELL DISTRIBUTION WIDTH 14.6 % (11.5-14.5)
[2023-01-20 16:59] LABS: ALANINE AMINOTRANSFERASE 705 U/L (12-78); ALBUMIN 3.4 G/DL (3.4-5.0); ALBUMIN/GLOBULIN RATIO 0.7 (1.1-1.5); ALKALINE PHOSPHATASE 256 IU/L (46-116); ANION GAP 8 (8-16); ASPARTATE AMINO TRANSFERASE 615 U/L (10-37); BILIRUBIN,TOTAL 1.6 MG/DL (0.1-1.0); BLOOD UREA NITROGEN 16 MG/DL (7-18); BUN/CREATININE RATIO 14.7 (10.0-20.0); CALCIUM 10.4 MG/DL (8.5-10.1); CHLORIDE 99 MMOL/L (99-107); CREATININE 1.09 MG/DL (0.60-1.10); GLUCOSE 153 MG/DL (70-104); POTASSIUM 4.2 MMOL/L (3.5-5.1); SODIUM 140 MMOL/L (135-145); TOTAL CARBON DIOXIDE 33.5 MMOL/L (24-32); TOTAL PROTEIN 8.2 G/DL (6.4-8.2); eGFR 68 ML/MIN
[2023-01-20 17:31] LABS: AMYLASE > 10000 U/L (25-115)
[2023-01-20 17:32] LABS: LIPASE 5793 U/L (73-393)
[2023-01-20 17:33] LABS: CLARITY,URINE CLEAR (Clear); COLOR,URINE YELLOW (Yellow); GLUCOSE, URINE NEGATIVE (Neg); KETONES,URINE NEGATIVE (Neg); LEUKOCYTE ESTERASE ,URINE NEGATIVE (Neg); NITRITES, URINE NEGATIVE (Neg); OCCULT BLOOD,URINE NEGATIVE (Neg); PH,URINE 6.5 (4.8-8.0); PROTEIN,URINE NEGATIVE (Neg); UROBILINOGEN,URINE >=8.0 E.U/dL (0.2-1.0)
[2023-01-20 17:39] LABS: UA COLLECTION TYPE CLN CATCH MIDSTREAM
[2023-01-20] MEDS ORDERED: morphine 4 MG/ML inj SYRINge IV ONE ×2 (17:40→20:05)
[2023-01-20] MEDS ORDERED: metoclopramide 5 mg/ml inj IV ONE (17:40)
[2023-01-20] MEDS ORDERED: CefTRIAXone 2gm/D5W 50ml BAG 50 ML IV ONE (17:40)
[2023-01-20] MEDS ORDERED: normal saline 1000ML IV soln IVB ONE (17:40)
[2023-01-20] MEDS ORDERED: diphenhydrAMINE 50 mg/ml inj IV ONE (17:40)
[2023-01-20] MEDS ORDERED: iohexol 300mg/ml 100ml inj. ONE (17:49)
--- NOTE | 2023-01-20 18:23 | NUR ---
pt sleeping. pain decreased to 2/10 from 05/26 - fluid bolus infusing now
[2023-01-20] MEDS ORDERED: metoclopramide 5 mg/ml inj IV PRN (20:05)
[2023-01-20] MEDS ORDERED: potassium Cl 40MEQ/1/2NS 520ml 520 ML IV PRN (20:05)
[2023-01-20] MEDS ORDERED: magnesium hydroxide 30ml (MOM) UD suspension PO PRN (20:05)
[2023-01-20] MEDS ORDERED: potassium Cl 20 mEq SR tablet PO PRN ×2 (20:05)
[2023-01-20] MEDS ORDERED: ondansetron/PF 4mg/2ml inj IV PRN (20:05)
[2023-01-20] MEDS ORDERED: morphine 2 MG/ML inj. syringe IV PRN ×2 (20:05)
[2023-01-20] MEDS ORDERED: magnesium 4gm in 100ml NS 100 ML IV PRN (20:05)
[2023-01-20] MEDS ORDERED: mag hydrox/Alum hydrox/simeth 30ml oral suspension PO PRN (20:05)
[2023-01-20] MEDS: normal saline 1000ml 1,000 ML IV SCH (20:05)
[2023-01-20] MEDS ORDERED: acetaminophen 325mg tablet PO PRN (20:05)
[2023-01-21] MEDS ORDERED: famotidine 20mg tablet PO ONE (00:10)
[2023-01-21 02:37] LABS: BASOPHILS % (AUTO) 0.3 % (0-1); EOSINOPHILS % (AUTO) 0.3 % (0-6); HEMATOCRIT 46.2 % (42.0-52.0); HEMOGLOBIN 15.1 g/dl (14.0-17.9); LYMPHOCYTES # (AUTO) 1.4 X10'3 (1.1-4.8); MEAN CORPUSCULAR HGB CONC 32.6 g/dL (33.0-36.5); MEAN CORPUSCULAR VOLUME 91.9 FL (78-98); MEAN PLATELET VOLUME 9.1 FL (7.4-10.4); MONOCYTES # (AUTO) 1.1 X10'3 (0-0.9); MONOCYTES % (AUTO) 8.3 % (2-12); NEUTROPHILS # (AUTO) 10.5 X10'3 (1.8-7.7); NEUTROPHILS % (AUTO) 80.1 % (42-75); PLATELET COUNT 302 X10'3 (140-440); RED BLOOD COUNT 5.02 X10'6 (4.70-6.10); RED CELL DISTRIBUTION WIDTH 14.6 % (11.5-14.5); WHITE BLOOD COUNT 13.1 X10'3 (4.5-11.0)
[2023-01-21 02:57] LABS: ALANINE AMINOTRANSFERASE 776 U/L (12-78); ALBUMIN 3.1 G/DL (3.4-5.0); ALBUMIN/GLOBULIN RATIO 0.6 (1.1-1.5); ALKALINE PHOSPHATASE 299 IU/L (46-116); ANION GAP 7 (8-16); ASPARTATE AMINO TRANSFERASE 519 U/L (10-37); BILIRUBIN,TOTAL 2.1 MG/DL (0.1-1.0); BLOOD UREA NITROGEN 15 MG/DL (7-18); BUN/CREATININE RATIO 14.9 (10.0-20.0); CALCIUM 9.6 MG/DL (8.5-10.1); CHLORIDE 103 MMOL/L (99-107); CREATININE 1.01 MG/DL (0.60-1.10); GLUCOSE 132 MG/DL (70-104); MAGNESIUM 2.2 MG/DL (1.5-2.4); POTASSIUM 4.7 MMOL/L (3.5-5.1); SODIUM 140 MMOL/L (135-145); TOTAL CARBON DIOXIDE 30.5 MMOL/L (24-32); eGFR 74 ML/MIN
[2023-01-21 03:05] LABS: LIPASE 5633 U/L (73-393)
[2023-01-21] MEDS: normal saline 1000ml 1,000 ML IV SCH ×3 (04:09→21:21)
--- NOTE | 2023-01-21 07:02 | NUR ---
report given to RN.
[2023-01-21 07:37] VITALS: BP 138/77
[2023-01-21] MEDS: docusate sod 100mg capsule PO SCH ×2 (07:50→20:00)
[2023-01-21] MEDS: K and/or MAG REPLACEMENT MC SCH ×2 (07:50→20:00)
[2023-01-21] MEDS: heparin, porcine 5000 units/ml vial SQ SCH ×2 (08:00→21:16)
[2023-01-21] MEDS: piperacillin/tazo 4.5gm/100ml 100 ML IV SCH ×3 (08:24→16:17)
[2023-01-21 10:00] VITALS: BP 136/76
--- NOTE | 2023-01-21 11:53 | NUR ---
PAGER ID: [phone] MESSAGE: [id number] FRANKLIN MONTES CAN PT RESUME CLEAR LIQUIDS NOW? JULIÁN [id number]
--- NOTE | 2023-01-21 18:00 | NUR ---
I have reviewed and agree with interventions, assessments, and documentation by Arin Keen LVN.
--- NOTE | 2023-01-21 18:30 | NUR ---
Patient in room [facility] 4014. I have received report from JULIÁN and had the opportunity to ask questions and assume patient care.
[2023-01-21 19:00] VITALS: BP 147/75
[2023-01-21 22:00] VITALS: BP 120/63
[2023-01-22] MEDS: piperacillin/tazo 4.5gm/100ml 100 ML IV SCH ×2 (00:18→07:43)
[2023-01-22] MEDS: normal saline 1000ml 1,000 ML IV SCH (04:35)
[2023-01-22 06:00] VITALS: BP 132/54
[2023-01-22 06:18] LABS: BASOPHILS # (AUTO) 0.1 X10'3 (0-0.2); BASOPHILS % (AUTO) 0.6 % (0-1); EOSINOPHILS # (AUTO) 0.5 X10'3 (0-0.9); EOSINOPHILS % (AUTO) 3.9 % (0-6); HEMATOCRIT 41.1 % (42.0-52.0); HEMOGLOBIN 13.6 g/dl (14.0-17.9); LYMPHOCYTES # (AUTO) 1.7 X10'3 (1.1-4.8); LYMPHOCYTES % (AUTO) 14.1 % (21-51); MEAN CORPUSCULAR HEMOGLOBIN 30.4 PG (27.0-31.0); MEAN CORPUSCULAR HGB CONC 33.2 g/dL (33.0-36.5); MEAN CORPUSCULAR VOLUME 91.4 FL (78-98); MEAN PLATELET VOLUME 8.1 FL (7.4-10.4); MONOCYTES # (AUTO) 1.2 X10'3 (0-0.9); MONOCYTES % (AUTO) 10.1 % (2-12); NEUTROPHILS # (AUTO) 8.5 X10'3 (1.8-7.7); NEUTROPHILS % (AUTO) 71.3 % (42-75); PLATELET COUNT 258 X10'3 (140-440); RED CELL DISTRIBUTION WIDTH 14.6 % (11.5-14.5); WHITE BLOOD COUNT 11.9 X10'3 (4.5-11.0)
--- NOTE | 2023-01-22 06:41 | NUR ---
Problems reprioritized. Patient report given, questions answered & plan of care reviewed with SHELBY.
[2023-01-22 06:46] LABS: ALANINE AMINOTRANSFERASE 399 U/L (12-78); ALBUMIN 2.6 G/DL (3.4-5.0); ALBUMIN/GLOBULIN RATIO 0.6 (1.1-1.5); ALKALINE PHOSPHATASE 221 IU/L (46-116); ANION GAP 8 (8-16); ASPARTATE AMINO TRANSFERASE 110 U/L (10-37); BLOOD UREA NITROGEN 12 MG/DL (7-18); BUN/CREATININE RATIO 14.6 (10.0-20.0); CALCIUM 9.1 MG/DL (8.5-10.1); CHLORIDE 100 MMOL/L (99-107); CREATININE 0.82 MG/DL (0.60-1.10); GLUCOSE 112 MG/DL (70-104); LIPASE 350 U/L (73-393); MAGNESIUM 1.9 MG/DL (1.5-2.4); POTASSIUM 3.8 MMOL/L (3.5-5.1); SODIUM 136 MMOL/L (135-145); TOTAL PROTEIN 7.1 G/DL (6.4-8.2); eGFR > 90 ML/MIN
--- NOTE | 2023-01-22 06:46 | NUR ---
Patient in room [facility]TH[facility] 4014. I have received report from Madie and had the opportunity to ask questions and assume patient care.
[2023-01-22] MEDS: K and/or MAG REPLACEMENT MC SCH (07:06)
[2023-01-22] MEDS: heparin, porcine 5000 units/ml vial SQ SCH (07:43)
[2023-01-22] MEDS: docusate sod 100mg capsule PO SCH (07:43)
[2023-01-22 10:00] VITALS: BP 93/50
== END 2023-01-22 14:12 | disposition home or self-care (01) | DRG 439 ==
LOC: ER 14:50 → ED HOLD 20:15 → ORTHO 4S 01-21 07:21
PROVIDERS: ADMIT Family Medicine; ATTEND Internal Medicine
PROC: BW211ZZ Computerized Tomography (CT Scan) of Abdomen and Pelvis using Low Osmolar Contrast (ICD-10-PCS; principal; 2023-01-20)
DX: K85.90 Acute pancreatitis without necrosis or infection, unspecified (principal); R65.10 Systemic inflammatory response syndrome (SIRS) of non-infectious origin without acute organ dysfunction; F17.210 Nicotine dependence, cigarettes, uncomplicated; D72.829 Elevated white blood cell count, unspecified; Z96.651 Presence of right artificial knee joint; R74.01 Elevation of levels of liver transaminase levels; E78.5 Hyperlipidemia, unspecified; R74.8 Abnormal levels of other serum enzymes; Z90.49 Acquired absence of other specified parts of digestive tract; Z88.5 Allergy status to narcotic agent; Z79.899 Other long term (current) drug therapy; Z71.6 Tobacco abuse counseling
CPT/HCPCS: 36415; 74177; 74181; 80053; 81003; 82150; 83605; 83690; 83735; 85025; 87040; 87081; 96365; 96375; 99285; A6258; G0378; J0696; J1200; J1644; J2270; J2405; J2543; J2765; J3490; J7030; Q9967